=== PATIENT | male | born 1945 | race Caucasian/White ===

== ENCOUNTER 2019-05-20 06:38 | Day surgery (SDC) | payer MEDICARE, OTHER ==
[~2019-05-20 06:38] MED LIST: Acetaminophen TAB* 325 MG PO PRN; Buffered Lidocaine 1% SYRIN* 1 ML/SYRINGE INTRADERM ONE
[2019-05-20] MEDS ORDERED: Midazolam* 1 MG/ML 2 ML VIAL (2 MG) ONE ×2 (08:00→08:21)
[2019-05-20] MEDS ORDERED: Lidocaine 2% w/ EPI 1:200,000* 20 ML SDV VIAL ONE (09:17)
[2019-05-20] MEDS ORDERED: Lidocaine 1% MPF ** 5 ML VIAL ONE (09:17)
[2019-05-20] MEDS ORDERED: Povidone Iodine 5% OPTH* 30 ML BTL ONE (09:17)
[2019-05-20] MEDS ORDERED: Neomycin/Polymy/Dex OPTH.SUSP* MAXITROL 0.1% 5 ML ONE (09:17)
[2019-05-20] MEDS ORDERED: Proparacaine 0.5% OPHTH.SOL* 15 ML BTL ONE (09:17)
[2019-05-20] MEDS ORDERED: Ketorolac 0.5% OPHTH (NF) 0.5 % 5 ML BTL ONE (09:17)
[2019-05-20] MEDS ORDERED: Phenylephrine OPHTH SOL 2.5%* 2 ML ONE (09:17)
[2019-05-20] MEDS ORDERED: Cyclopentolate 1% OPTH.SOL* 2 ML BTL ONE (09:17)
[2019-05-20 09:19] VITALS: BP 127/65
--- NOTE | 2019-05-20 12:31 | OP ---
DATE OF OPERATION: 05/20/19 [facility] DATE OF : 43 SURGEON: Sachin Freeman M.D. PREOPERATIVE DIAGNOSIS: Cataract, right. POSTOPERATIVE DIAGNOSIS: Cataract, right. OPERATIVE PROCEDURE: Extracapsular cataract extraction with IOL, intraocular lens implant right eye. DESCRIPTION OF PROCEDURE: The patient was brought to the operating room after being given 1/2% Alcaine with epinephrine drops in the preoperative area. The eye was prepped and draped in the usual sterile fashion. Sterile drape and eyelid speculum were placed. Again, topical 1/2% Alcaine with epinephrine was given. A paracentesis incision was made at the 9 o'clock position with the No.75 blade. Clear cornea incision 2.2 x 2.2-mm was created at the 12 o'clock position starting at the anterior limbus using the 2.2-mm keratome. The anterior chamber was irrigated with 0.4 mL of 1% non-preservative intracameral lidocaine and filled with DisCoVisc. A capsulorrhexis was completed using the cystotome and the Utrata forceps. Hydrodissection was performed with balanced salt solution. The lens nucleus was removed with the Phacoemulsification handpiece without incident. Cortex was removed with the irrigation-aspiration handpiece. The capsular bag was re-inflated using DisCoVisc and an [id number] 21 implant was inserted with the shooter, oriented to the 10 degree meridian. Horizontal reference champagne made with the patient in a seated position. All measurements confirmed with ORA. The irrigation-aspiration handpiece was used to remove all residual DisCoVisc. The eye was refilled with balanced salt solution and the wound checked and found to be watertight. Topical Maxitrol drops were given. [id number]/[facility] #: [id number]
== END 2019-05-20 09:15 | disposition home or self-care (01) ==
LOC: OREAST 06:38
PROVIDERS: ATTEND Specialist
DX: H25.11 Age-related nuclear cataract, right eye (principal); H25.013 Cortical age-related cataract, bilateral; H04.123 Dry eye syndrome of bilateral lacrimal glands; G47.33 Obstructive sleep apnea (adult) (pediatric); K51.90 Ulcerative colitis, unspecified, without complications; M17.0 Bilateral primary osteoarthritis of knee; L82.1 Other seborrheic keratosis; Z87.891 Personal history of nicotine dependence; Z90.5 Acquired absence of kidney; Z85.528 Personal history of other malignant neoplasm of kidney
CPT/HCPCS: A9270-GY; J2250; V2787

== ENCOUNTER 2019-05-27 07:14 | Day surgery (SDC) | payer MEDICARE, OTHER ==
[2019-05-27] MEDS ORDERED: Cyclopentolate 1% OPTH.SOL* 2 ML BTL ONE (09:21)
[2019-05-27] MEDS ORDERED: Lidocaine 2% w/ EPI 1:200,000* 20 ML SDV VIAL ONE (09:21)
[2019-05-27] MEDS ORDERED: Povidone Iodine 5% OPTH* 30 ML BTL ONE (09:21)
[2019-05-27] MEDS ORDERED: Phenylephrine OPHTH SOL 2.5%* 2 ML ONE (09:21)
[2019-05-27] MEDS ORDERED: Proparacaine 0.5% OPHTH.SOL* 15 ML BTL ONE (09:21)
[2019-05-27] MEDS ORDERED: Ketorolac 0.5% OPHTH (NF) 0.5 % 5 ML BTL ONE (09:21)
[2019-05-27] MEDS ORDERED: Lidocaine 1% MPF ** 5 ML VIAL ONE (09:21)
[2019-05-27] MEDS ORDERED: Neomycin/Polymy/Dex OPTH.SUSP* MAXITROL 0.1% 5 ML ONE (09:21)
[2019-05-27] MEDS ORDERED: Midazolam* 1 MG/ML 2 ML VIAL (2 MG) ONE ×2 (09:51→09:55)
[2019-05-27 10:43] VITALS: BP 110/74
--- NOTE | 2019-05-27 11:38 | OP ---
DATE OF OPERATION: 05/27/2019. DATE OF : 1945. SURGEON: Sachin Freeman M.D. PREOPERATIVE DIAGNOSIS: Cataract left eye. POSTOPERATIVE DIAGNOSIS: Cataract left eye. OPERATIVE PROCEDURE: Extracapsular cataract extraction with intraocular lens implant left eye. PROCEDURE: The patient was brought to the operating room after being given 1/2% Alcaine with epineph rine drops in the preoperative area. The eye was prepped and draped in the usual sterile fashion. S terile drape and eyelid speculum were placed. Again, topical 1/2% Alcaine with epinephrine was given . A paracentesis incision was made at the 3 o'clock position with the No.75 blade. Clear cornea inc ision 2.2 x 2.2-mm was created at the 6 o'clock position starting at the anterior limbus using the 2. 2-mm keratome. The anterior chamber was irrigated with 0.4 mL of 1% non-preservative intracameral li docaine and filled with DisCoVisc. A capsulorrhexis was completed using the cystotome and the Utrata forceps. Hydrodissection was performed with balanced salt solution. The lens nucleus was removed wi th the Phacoemulsification handpiece without incident. Cortex was removed with the irrigation-aspira tion handpiece. The capsular bag was re-inflated using DisCoVisc and an SN6AT3 22.5 implant was inse rted with the shooter, oriented to the 170 degree meridian. Horizontal reference champagne made with the patient in the seated position in the preoperative area. All measurements were confirmed with ORA. The irrigation-aspiration handpiece was used to remove all residual DisCoVisc. The eye was refilled with balanced salt solution and the wound checked and found to be watertight. Topical Maxitrol drop s were given. [id number]/[facility] #: [id number]
== END 2019-05-27 10:34 | disposition home or self-care (01) ==
LOC: OREAST 07:14
PROVIDERS: ATTEND Specialist
DX: H25.12 Age-related nuclear cataract, left eye (principal); H04.123 Dry eye syndrome of bilateral lacrimal glands; Z87.891 Personal history of nicotine dependence; M19.90 Unspecified osteoarthritis, unspecified site; Z85.528 Personal history of other malignant neoplasm of kidney; G47.33 Obstructive sleep apnea (adult) (pediatric); K51.90 Ulcerative colitis, unspecified, without complications
CPT/HCPCS: A9270-GY; J2250; V2787